=== PATIENT | male | born 1955 | race Caucasian/White ===

== ENCOUNTER 2020-07-14 06:25 | Day surgery (SDC) | payer OTHER ==
[~2020-07-14] VITALS: Ht 182.9 cm; Wt 93.0 kg
[~2020-07-14 06:25] MED LIST: SODIUM CHLORIDE 0.9% 1,000 ML IV ONE; SODIUM CHLORIDE 0.9% 1,000 ML ONE
[2020-07-14 06:58] LABS: GLUCOMETER DEV NAME(LOC) SDS.; GLUCOSE,POINT OF CARE 139 MG/DL (70-110)
[2020-07-14] MEDS ORDERED: CARV12 PO (07:18)
[2020-07-14] MEDS ORDERED: LOSA50TA37 PO (07:18)
[2020-07-14] MEDS ORDERED: OMEP20 PO (07:18)
[2020-07-14] MEDS ORDERED: SYMB8060 IH (07:18)
[2020-07-14] MEDS ORDERED: HYDR-1475 PO (07:18)
[2020-07-14] MEDS ORDERED: AMLO-258 PO (07:18)
[2020-07-14] MEDS ORDERED: FentaNYL CITRATE-PF 100 MCG/2 ML VIAL ONE (07:44)
[2020-07-14] MEDS ORDERED: MIDAZOLAM HCL 2 MG/2 ML VIAL ONE (07:44)
[2020-07-14] MEDS ORDERED: MethylPREDNISolone SOD SUCC 125 MG/2 ML VIAL ONE (08:37)
[2020-07-14] MEDS ORDERED: MethylPREDNISolone SOD SUCC 125 MG/2 ML VIAL IVP ONE (09:00)
[2020-07-14] MEDS ORDERED: BENZOCAINE 20% 50 MCG/SPRAY 57 GM ONE (14:49)
[2020-07-14] MEDS ORDERED: LIDOCAINE 4% 50 ML SOLUTION ONE (14:49)
[2020-07-14] MEDS ORDERED: ALBUTEROL SULFATE 2.5 MG/0.5 ML NEB SOLUTION NEB ONE (14:49)
[2020-07-14] MEDS ORDERED: LIDOCAINE 2% 30 ML JELLY ONE (14:49)
== END 2020-07-14 10:40 | disposition home or self-care (01) ==
LOC: SURGERY 06:25
PROVIDERS: ATTEND Internal Medicine Critical Care Medicine
DX: J38.4 Edema of larynx (principal); B37.0 Candidal stomatitis; Z98.890 Other specified postprocedural states; E78.00 Pure hypercholesterolemia, unspecified; Z79.899 Other long term (current) drug therapy
CPT/HCPCS: 31623; 31624; 71045; 82962; 87015; 87070; 87101; 87205; 87206; 87220; 87635; 88108; 88312; 93005; J2250; J2930; J3010; J7030; J7613; Z7610